=== PATIENT | male | born 1990 | race Caucasian/White ===

== ENCOUNTER 2017-03-04 23:11 | Emergency (ER) | payer BC, OTHER ==
[~2017-03-04] VITALS: Ht 172.7 cm; Wt 79.0 kg
[2017-03-04 23:24] VITALS: Ht 172.7 cm; Wt 79.0 kg
[2017-03-05] MEDS ORDERED: SOD CHLORIDE 0.9% 1,000 ML IV STA (00:29)
[2017-03-05] MEDS ORDERED: ONDANSETRON 4 MG INJ IV STA (00:29)
[2017-03-05] MEDS ORDERED: morphine 4 MG/ML VIAL IV STA (00:29)
--- NOTE | 2017-03-05 00:57 | ERD ---
ER Documentation Chief Complaint Date/Time DATE: 03/05/17 TIME: 00:56 Chief Complaint RLQ ABD PAIN X 3 DAYS WITHOUT N/V/D HPI 26-year-old male presents to emergency department for complaints of right lower quadrant abdominal pain for 3 days. Patient describes the pain as sharp pain, 6 /10 scale, not better or worse with anything. Patient denies any nausea vomiting diarrhea or constipation. Patient denies any fever or chills. Patient did not take any medications to help with symptoms. Patient denies any flank pain. Patient denies any hematuria or dysuria. ROS All systems reviewed and are negative except as per history of present illness. Medications Home Meds Reported Medications [none] Unknown Strength No Conflict Check 03/05/17 Allergies Allergies: Coded Allergies: No Known Allergy (Unverified , 05/15/14) PMhx/Soc Medical and Surgical Hx: pt denies Medical Hx, pt denies Surgical Hx Hx Alcohol Use: Yes (OCCASIONALLY) Hx Substance Use: Yes (ONCE WEEKLY) Hx Tobacco Use: Yes Smoking Status: Current every day smoker FmHx Family History: No coronary disease, No diabetes, No other Physical Exam Vitals Vital Signs Date Time Temp Pulse Resp B/P Pulse Ox O2 Delivery O2 Flow Rate FiO2 03/04/17 23:24 98.4 104 22 140/88 98 Physical Exam GENERAL: The patient is well developed and appropriate for usual state of health, in no apparent distress. CHEST: Clear to auscultation bilaterally. There are no rales, wheezes or rhonchi. HEART: Regular rate and rhythm. No murmurs, clicks, rubs or gallops. No S3 or S4. ABDOMEN: Soft, nontender and nondistended. Good bowel sounds. No rebound or guarding. No gross peritonitis. No gross organomegaly or masses. No Jama sign or McBurney point tenderness. BACK: No midline or flank tenderness. EXTREMITIES: Equal pulses bilaterally. There is no peripheral clubbing, cyanosis or edema. No focal swelling or erythema. Full range of motion. Grossly neurovascularly intact. NEURO: Alert and oriented. Cranial nerves 2-12 intact. Motor strength in all 4 extremities with 5/5 strength. Sensation grossly intact. Normal speech and gait. SKIN: There is no apparent rash or petechia. The skin is warm and dry. HEMATOLOGIC AND LYMPHATIC: There is no evidence of excessive bruising or lymphedema. No gross cervical, axillary, or inguinal lymphadenopathy. Result Diagram: 03/05/17 0004 03/05/17 0004 Results 24 hrs Laboratory Tests Test 03/05/17 00:04 White Blood Count 6.910^3/ul Red Blood Count 5.6010^6/ul Hemoglobin 16.8g/dl Hematocrit 47.0% Mean Corpuscular Volume 83.9fl Mean Corpuscular Hemoglobin 30.0pg Mean Corpuscular Hemoglobin Concent 35.7g/dl Red Cell Distribution Width 12.1% Platelet Count 34173^3/UL Mean Platelet Volume 10.7fl Neutrophils % 55.0% Lymphocytes % 35.7% Monocytes % 7.1% Eosinophils % 1.6% Basophils % 0.3% Nucleated Red Blood Cells % 0.0/100WBC Neutrophils # 3.810^3/ul Lymphocytes # 2.510^3/ul Monocytes # 0.510^3/ul Eosinophils # 0.110^3/ul Basophils # 0.010^3/ul Nucleated Red Blood Cells # 0.010^3/ul Urine Color YELLOW Urine Clarity CLOUDY Urine pH 6.0 Urine Specific Bryce 1.023 Urine Ketones NEGATIVEmg/dL Urine Nitrite NEGATIVEmg/dL Urine Bilirubin NEGATIVEmg/dL Urine Urobilinogen 1+mg/dL Urine Leukocyte Esterase NEGATIVELeu/ul Urine Microscopic RBC 0/HPF Urine Microscopic WBC 0/HPF Urine Calcium Oxalate Crystals MANY/HPF Urine Hemoglobin NEGATIVEmg/dL Urine Glucose NEGATIVEmg/dL Urine Total Protein NEGATIVEmg/dl Sodium Level 139mmol/L Potassium Level 3.9mmol/L Chloride Level 102mmol/L Carbon Dioxide Level 27mmol/L Anion Gap 14 Blood Urea Nitrogen 17mg/dl Creatinine 0.97mg/dl Glucose Level 98mg/dl Calcium Level 9.9mg/dl Total Bilirubin 0.5mg/dl Direct Bilirubin 0.00mg/dl Indirect Bilirubin 0.5mg/dl Aspartate Amino Transf (AST/SGOT) 31IU/L Alanine Aminotransferase (ALT/SGPT) 51IU/L Alkaline Phosphatase 77IU/L Total Protein 8.2g/dl Albumin 4.6g/dl Globulin 3.60g/dl Albumin/Globulin Ratio 1.27 Lipase 235U/L Current Medications Medications (Trade) Dose Ordered Sig/Stanislav Route PRN Reason Start Time Stop Time Status Last Admin Dose Admin Sodium Chloride (NS) 1,000 ml @ 1,000 mls/hr Q1H STAT IV 03/05/17 00:29 03/05/17 01:28 DC 03/05/17 00:42 Morphine Sulfate (morphine) 4 mg ONCE STAT IV 03/05/17 00:29 03/05/17 00:30 DC 03/05/17 00:42 Ondansetron HCl (Zofran Inj) 4 mg ONCE STAT IV 03/05/17 00:29 03/05/17 00:30 DC 03/05/17 00:41 Ketorolac Tromethamine (Toradol) 30 mg ONCE ONCE IV 03/05/17 02:11 03/05/17 02:12 DC 03/05/17 02:20 Patient was given medication for pain here in emergency department, after treatment, patient verbalized feeling much better. Patient's pain is improved. Patient was given Zofran here in the emergency department. After treatment, patient was able to tolerate po fluids here in the emergency department without any vomiting. There is no signs and symptoms of dehydration. PROCEDURE: CT abdomen and pelvis without intravenous contrast. CLINICAL INDICATION: Pain. TECHNIQUE: CT of the abdomen/pelvis was performed utilizing axial images with reconstructions in sagittal and coronal planes. The administered radiation dose is CTDI 17 mGy, DLP 945 mGy-cm. One or more of the following dose reduction techniques were used: automated exposure control, adjustment of the mA and/or kV according to patient size and/or use of iterative reconstruction technique. COMPARISON: 05/15/2014 FINDINGS: Visualized Chest: The visualized lung bases are clear. Abdomen: The liver, spleen, pancreas, gallbladder,and adrenal glands are unremarkable. The kidneys are without hydronephrosis. No definite urinary calculi are seen. There is no evidence of bowel obstruction. The appendix is normal. No intra- abdominal free air is seen. There is no evidence of intra-abdominal adenopathy or free fluid. Pelvis: There is no evidence of pelvic adenopathy or free fluid. The prostate and bladder are unremarkable. Osseous structures: Unremarkable. IMPRESSION: No acute findings. RPTAT: HIKT .John Bojorquez MD, MD Date Time Electronically viewed and signed by .John Bojorquez MD, MD on 03/05/2017 01:40 .T/ CC: ANDRES BERTRAND PRIMING MACHINE OPERATOR PROCEDURE: US soft tissue CLINICAL INDICATION: Palpable mass TECHNIQUE: Multiple real-time images were acquired of the patient's right lower abdominal wall utilizing a high resolution transducer. COMPARISON: None FINDINGS: No mass or fluid collection is identified. IMPRESSION: Negative exam. Physician Casey Date Time Electronically viewed and signed by Ana Castro Physician on 03/05/2017 03: 21 CS/ CC: ANDRES BERTRAND PRIMING MACHINE OPERATOR Procedures/MDM Medical Decision Making: Pt symptoms nonspecific at this time, can be calcified vessel of affected area, patient was also examined by Dr. Frazier, ultrasound and CT scan does not show any abnormality. There is low suspicion for abdominal emergencies at this time. Patients abdominal exam is normal at this time. Patients radiology exam does not show any abdominal emergencies at this time. There is low suspicion for appendicitis, cholecystitis, abdominal aortic aneurysms or peritonitis at this time. There is low suspicion for sepsis. Patient appears well and is hemodynamically stable. Disposition: Home. Condition: Stable Prescription ibuprofen, tramadol Instructions: Patient is advised to take medications as prescribed. Patient is advised to rest, increase fluid intake and do MRI with primary care doctor. Patient is advised that if symptoms are worse, severe abdominal pain, uncontrolled vomiting, high fever, severe flank pain, worst signs and symptoms, to return to the emergency department immediately. Otherwise, patient can follow up with primary care doctor in 5-7 days. Disclaimer: Inadvertent spelling and grammatical errors are likely due to EHR/ dictation software use and do not reflect on the overall quality of patient care. Also, please note that the electronic time recorded on this note does not necessarily reflect the actual time of the patient encounter. Departure Diagnosis: Primary Impression: Abdominal pain Abdominal location: lower abdomen, unspecified Qualified Code: R10.30 - Lower abdominal pain Condition: Stable Patient Instructions: Abdominal Pain Additional Instructions: Patient is advised to take medications as prescribed. Patient is advised to rest , increase fluid intake and do MRI with primary care doctor. Patient is advised that if symptoms are worse, severe abdominal pain, uncontrolled vomiting, high fever, severe flank pain, worst signs and symptoms, to return to the emergency department immediately. Otherwise, patient can follow up with primary care doctor in 5-7 days. ANDRES BERTRAND NP Mar 05, 2017 00:57
[2017-03-05 01:01] LABS: BASOPHILS % 0.3 % (0.0-2.0); EOSINOPHILS # 0.1 10^3/ul (0.0-0.5); EOSINOPHILS % 1.6 % (0.0-7.0); HEMOGLOBIN 16.8 g/dl (14.0-18.0); LYMPHOCYTES # 2.5 10^3/ul (0.8-2.9); LYMPHOCYTES % 35.7 % (15.0-51.0); MEAN CORPUSCULAR HGB CONC 35.7 g/dl (32.0-37.0); MEAN CORPUSCULAR VOLUME 83.9 fl (82.0-101.0); MEAN PLATELET VOLUME 10.7 fl (7.4-10.4); MONOCYTE # 0.5 10^3/ul (0.3-0.9); MONOCYTES % 7.1 % (0.0-11.0); NEUTROPHIL # 3.8 10^3/ul (1.6-7.5); PLATELET COUNT 259 10^3/UL (140-415); RED CELL DISTRIBUTION WIDTH 12.1 % (11.5-14.5); WHITE BLOOD COUNT 6.9 10^3/ul (4.8-10.8)
[2017-03-05 01:08] LABS: ADD UMIC YES; UR ASCORBIC ACID NEGATIVE (NEGATIVE); UR BILIRUBIN (Dip) NEGATIVE (NEGATIVE); UR BLOOD (Dip) NEGATIVE (NEGATIVE); UR CLARITY CLOUDY (CLEAR); UR COLOR YELLOW (YELLOW); UR GLUCOSE (Dip) NEGATIVE (NEGATIVE); UR KETONES (Dip) NEGATIVE (NEGATIVE); UR LEUKOCYTE ESTERASE (Dip) NEGATIVE Leu/ul (NEGATIVE); UR NITRITE (Dip) NEGATIVE (NEGATIVE); UR RBC 0 /HPF (0-5); UR SPECIFIC GRAVITY (Dip) 1.023 (1.003-1.030); UR TOTAL PROTEIN (Dip) NEGATIVE (NEGATIVE); UR UROBILINOGEN (Dip) 1+ mg/dL (NEGATIVE)
[2017-03-05 01:20] LABS: ALBUMIN 4.6 g/dl (3.3-4.9); ALBUMIN/GLOBULIN RATIO 1.27; BILIRUBIN,INDIRECT 0.5 mg/dl (0-1.1); BILIRUBIN,TOTAL 0.5 mg/dl (0.2-1.3); CALCIUM 9.9 mg/dl (8.4-10.2); CREATININE 0.97 mg/dl (0.61-1.24); POTASSIUM 3.9 mmol/L (3.5-5.1); TOTAL PROTEIN 8.2 g/dl (6.1-8.1)
--- NOTE | 2017-03-05 01:40 | RADRPT ---
PROCEDURE: CT abdomen and pelvis without intravenous contrast. CLINICAL INDICATION: Pain. TECHNIQUE: CT of the abdomen/pelvis was performed utilizing axial images with reconstructions in s agittal and coronal planes. The administered radiation dose is CTDI 17 mGy, DLP 945 mGy-cm. One or m ore of the following dose reduction techniques were used: automated exposure control, adjustment of the mA and/or kV according to patient size and/or use of iterative reconstruction technique. COMPARISON: 05/15/2014 FINDINGS: Visualized Chest: The visualized lung bases are clear. Abdomen: The liver, spleen, pancreas, gallbladder,and adrenal glands are unremarkable. The kidneys are without hydronephrosis. No definite urinary calculi are seen. There is no evidence of bowel obstruction. The appendix is normal. No intra-abdominal free air is seen. There is no evidence of intra-abdominal adenopathy or free fluid. Pelvis: There is no evidence of pelvic adenopathy or free fluid. The prostate and bladder are unremarkable. Osseous structures: Unremarkable. IMPRESSION: No acute findings. RPTAT: HIKT .John Bojorquez MD, MD Date Time Electronically viewed and signed by .John Bojorquez MD, on 03/05/2017 01:40 .T/
[2017-03-05] MEDS ORDERED: KETOROLAC 30 MG INJ IV ONE (02:11)
--- NOTE | 2017-03-05 03:21 | RADRPT ---
PROCEDURE: US soft tissue CLINICAL INDICATION: Palpable mass TECHNIQUE: Multiple real-time images were acquired of the patient's right lower abdominal wall uti lizing a high resolution transducer. COMPARISON: None FINDINGS: No mass or fluid collection is identified. IMPRESSION: Negative exam. Physician Casey Date Time Electronically viewed and signed by Ana Castro Physician on 03/05/2017 03:21 /
[2017-03-05] MEDS ORDERED: IBUP-1542 PO (03:27)
[2017-03-05] MEDS ORDERED: TRAM50TA2 PO (03:27)
[2017-03-05 03:33] VITALS: BP 119/74; PULSE 73; RESP 16
== END 2017-03-05 03:35 | disposition home or self-care (01) ==
LOC: FTE 23:11
DX: R10.31 Right lower quadrant pain (principal); F17.210 Nicotine dependence, cigarettes, uncomplicated
CPT/HCPCS: 36415; 74176; 76536; 80053; 81001; 83690; 85025; 96374; 96375; J1885; J2270; J2405; J7030; Z7502